=== PATIENT | female | born 1965 | race Caucasian/White ===

== ENCOUNTER 2018-09-02 10:41 | Emergency (ER) | payer BC ==
[~2018-09-02] VITALS: Ht 172.7 cm; Wt 80.7 kg
[2018-09-02] MEDS ORDERED: CELEBREX50 MG (10:47)
== END 2018-09-02 14:13 | disposition home or self-care (01) ==
LOC: ER 10:41
DX: N39.0 Urinary tract infection, site not specified (principal); B96.89 Other specified bacterial agents as the cause of diseases classified elsewhere